=== PATIENT | female | born 1995 | race African-American/Black ===

== ENCOUNTER → 2016-10-16 | Outpatient (CLI) | payer MEDICAID ==
--- NOTE | 2016-10-16 16:07 | RADIOLOGY REPORT (SQ) ---
EXAM DESCRIPTION: C SP 4 OR 5 VIEWS COMPLETED DATE/TIME: 10/16/2016 3:28 pm REASON FOR STUDY: CERVICALGIA M54.2 CERVICALGIA COMPARISON: None. NUMBER OF VIEWS: Five views. TECHNIQUE: AP, lateral, obliques and odontoid radiographic images acquired of the cervical spine. LIMITATIONS: None. FINDINGS: MINERALIZATION: Normal. ALIGNMENT: Anatomic. VERTEBRAE: Vertebral bodies of normal height. DISCS: No significant osteophytes or sclerosis. Disc height maintained. FORAMINA: No osteophytes or foraminal narrowing. LATERAL AND POSTERIOR ELEMENTS: Facets, lateral masses and spinous processes without significant find ings. HARDWARE: None in the spine. SOFT TISSUES: No masses or calcifications. Lung apices clear. OTHER: No other significant finding. IMPRESSION: NO SIGNIFICANT RADIOGRAPHIC FINDING IN THE CERVICAL SPINE. TECHNICAL DOCUMENTATION: JOB ID: [id number] [employer]- All Rights Reserved
== END ==
LOC: OD 14:56
PROVIDERS: ATTEND Physician Assistant
DX: M54.2 Cervicalgia (principal)
CPT/HCPCS: 72050

== ENCOUNTER 2016-10-18 22:03 | Emergency (ER) | payer MEDICAID ==
--- NOTE | 2016-10-18 23:48 | ER Document Report ---
ED General - General Chief Complaint: Arm Pain Stated Complaint: LEFT ARM PAIN Notes: 20-year-old female presents with left arm pain tingling and subjective swelling for 1 day, associated with neck pain and stiffness. The neck pain is been off and on for 2 days and she "felt a lump" which is now better. She was seen in urgent care had a normal x-rays and saw her primary care doctor and was prescribed Motrin and Flexeril but this is not helping. One year ago she had an axial loading injury where a box fell on her head and she had neck pain and left arm pain transiently. She states that she has not started physical therapy and will not get an MRI for 6 weeks secondary to her insurance. TRAVEL OUTSIDE OF THE [place] IN LAST 30 DAYS: No - Related Data Allergies/Adverse Reactions: No Known Allergies Allergy (Verified 05/23/11 16:41) Past Medical History - General Information source: Patient - Social History Smoking Status: Never Smoker Family History: None Patient has suicidal ideation: No Patient has homicidal ideation: No Pulmonary Medical History: Reports: Hx Asthma Renal/ Medical History: Denies: Hx Peritoneal Dialysis - Immunizations Immunizations up to date: Yes Hx Diphtheria, Pertussis, Tetanus Vaccination: Yes - <5 years Review of Systems - Review of Systems Notes: REVIEW OF SYSTEMS GEN: Denies fever, chills, weight loss ENT: Denies sore throat, nasal discharge, ear pain EYES: Denies blurry vision, eye pain, discharge CV: Denies chest pain, palpitations, edema RESP: Denies cough, shortness of breath, wheezing GI: Denies abdominal pain, nausea, vomiting, diarrhea MSK: Neck pain and stiffness SKIN: Denies rash, skin lesions LYMPH: Denies swollen glands/lymph nodes NEURO: Left arm tingling and swelling PSYCH: Denies depression, suicidal or homicidal ideation PHYSICAL EXAMINATION General: No acute distress, well-nourished Head: Atraumatic, normocephalic ENT: Mouth normal, oropharynx moist, no exudates or tonsillar enlargement Eyes: Conjunctiva normal, pupils equal, lids normal Neck: No JVD, supple, with decreased rotation. Normal flexion-extension. Mild tenderness at the base of the cervical spine. No spasm. CVS: Normal rate, regular rhythm, no murmurs Resp: No resp distress, equal and normal breath sounds bilaterally GI: Nondistended, soft, no tenderness to palpation, no rebound or guarding Ext: No deformities, no edema, normal range of motion in upper and lower ext Back: No CVA or midline TTP Skin: No rash, warm Lymphatic: No lymphadeopathy noted Neuro: Awake, alert. Face symmetric. GCS 15. 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 Physical Exam - Vital signs Vitals: Temp Pulse Resp BP Pulse Ox 97.4 F 101 H 18 154/77 H 100 10/18/16 22:10 10/18/16 22:10 10/18/16 22:10 10/18/16 22:10 10/18/16 22:10 Course - Re-evaluation Re-evalutation: 10/18/16 23:47 Left-sided cervical radiculopathy without signs of cord compression infection or other serious disease. Injury history so this is likely a disc causing lateral recess narrowing. Patient is already on track to get this taken care of as an outpatient I will add Neurontin to her regimen. See discharge instructions for further details. Insert discharge 10/18/16 23:48 I have discussed with the patient there likely diagnosis, aftercare plan, follow -up plans and my usual and customary return precautions. They verbalized understanding of this. - Vital Signs Vital signs: Temp Pulse Resp BP Pulse Ox 97.4 F 101 H 18 154/77 H 100 10/18/16 22:10 10/18/16 22:10 10/18/16 22:10 10/18/16 22:10 10/18/16 22:10 Discharge - Discharge Clinical Impression: Left cervical radiculopathy Condition: Good Disposition: HOME, SELF-CARE Instructions: Radiculopathy ([facility]) Additional Instructions: As we discussed you can take the medicines are already using, however I am prescribing you a new medicine for nerve pain that is called gabapentin. Please take it 3 times a day. The drowsiness you experience will decrease over about a week. Please go back to regular doctor, schedule physical therapy and ask for an MRI to be performed. Prescriptions: Gabapentin [Neurontin 300 mg Capsule] 300 mg PO Q8 #90 cap
[2016-10-18 23:54] VITALS: BP 148/76
== END 2016-10-18 23:54 | disposition home or self-care (01) ==
LOC: ER 22:03
DX: M54.12 Radiculopathy, cervical region (principal); M79.602 Pain in left arm; M79.89 Other specified soft tissue disorders
CPT/HCPCS: 99283

== ENCOUNTER → 2017-09-25 | Outpatient (CLI) | payer SELFPAY ==
[2017-09-25 12:06] LABS: T.VAGINALIS (WET MOUNT) NO TRICHOMONAS SEEN; WBCS (WET MOUNT) 3+ WBCS SEEN; YEAST (WET MOUNT) NO YEAST SEEN
[2017-09-25 12:07] LABS: BACTERIA (WET MOUNT) 4+ BACTERIA SEEN; EPITHELIALS (WET MOUNT) 3+ EPITHELIALS SEEN; RBCS (WET MOUNT) FEW RBCS SEEN
[2017-09-25 13:37] LABS: CHLAM PCR NOT DETECTED (NOT DETECT); GON PCR NOT DETECTED (NOT DETECT)
== END ==
LOC: LAB 11:57
PROVIDERS: ATTEND Nurse Practitioner Family
DX: N12 Tubulo-interstitial nephritis, not specified as acute or chronic (principal); N89.8 Other specified noninflammatory disorders of vagina; R30.0 Dysuria
CPT/HCPCS: 87086; 87210; 87491; 87591